=== PATIENT | female | born 1975 | race Asian ===

== ENCOUNTER 2021-06-17 07:19 | Day surgery (SDC) | payer OTHER ==
[~2021-06-17] VITALS: Ht 154.9 cm; Wt 50.1 kg
[~2021-06-17 07:19] MED LIST: Cipro500 MG PO; IBUP400 PO; Zofran Odt4 MG SL
--- NOTE | 2021-06-17 08:30 | NUR ---
0715 patient to day surgery. confirmed procedure and NPO status. lungs clear. pre op teaching done. patient has solid stone braclette on and unable to remove. explained risks to pt of leaving braclette on. glasses taken to pacu
[2021-06-17 14:01] LABS: Hematocrit 36.6 % (33.0-51.0); Hemoglobin 12.6 g/dL (11.5-16.0); Mean Corpuscular HGB Conc 34.4 g/dL (31.5-36.5); Mean Corpuscular Volume 90 fL (80-100); Mean Platelet Volume 10.9 fL (9.1-12.4); Platelet Count 146 K/mm3 (150-400); RDW Coefficient Variation 12.5 % (11.7-14.2); RDW Standard Deviation 41.3 fL (35.1-46.3); Red Blood Cell Count 4.07 M/mm3 (3.80-5.20); White Blood Cell Count 15.27 K/mm3 (4.00-11.30)
[2021-06-17 14:30] LABS: BAND PERCENT MAN 3 % (0-8); BASOPHILS PERCENT MAN 0 % (0-2); EOSINOPHILS PERCENT MAN 0 % (0-6); MONOCYTES ABSOLUTE MAN 0.15 K/mm3 (0.16-1.47); MONOCYTES PERCENT MAN 1 % (4-13); NEUTROPHILS ABSOLUTE MAN 15.11 K/mm3 (1.96-9.15); SEG NEUTROPHILS PERCENT MAN 96 % (41-73); TOTAL CELLS COUNTED 100
--- NOTE | 2021-06-17 18:18 | NUR ---
PATIENT CURRENTLY SITTING UP IN BED WITH NO SIGNS OR SYMPTOMS ACUTE DISTRESS NOTED. TOLERATING DIET WELL. TAKING PO WELL. NO COMPLAINTS OF NAUSEA. PATIENT WANTS TO STAY OVERNIGHT, DR SANTANA IS AWARE AND OK WITH THAT. PIRES CATH WAS REMOVED AT 1630 AND IS VOIDING WELL. PATIENT HAS AMBULATED IN THE [place] AND IS DOING SO IN ROOM OFTEN. CALL LIGHT AND WATER IN EASY REACH. ABLE TO MAKE NEEDS AND WANTS KNOWN. WILL MONITOR.
--- NOTE | 2021-06-18 05:15 | NUR ---
SHIFT SUMMARY: PT IN BED AAOX4. VS WNL WITH NO SIGNS OF DISTRESS NOTED. PT COMPLAINS OF PAIN AND CRAMPS IN ABDOMEN. MEDICATED PER EMAR FOR PAIN. SALINE LOCK IN PLACE PATENT SITE DRY AND INTACT. 2 INCISION ON ABDOMEN WITH STERI STRIPS C/D/I. ACTIVE BOWEL SOUNDS FLATUS PRESENT. PT UP TO BATHROOM ONE PERSON ASSIST VOIDED WELL CLEAR YELLOW URINE. WILL CONTINUE TO MONITOR AND MAINTAIN ALL PRECAUTIONS.
[2021-06-18] MEDS ORDERED: MOTRIN IB200 MG PO (08:32)
[2021-06-18] MEDS ORDERED: HYDR1TAB94 PO (08:32)
--- NOTE | 2021-06-18 12:38 | NUR ---
DISCHARGE: PACKET PRINTED AND PT EUDUCATED. GIVEN SCRIPT. PT VERBALIZED UNDERSTANDING.IV DC'D WNL. LEFT UNIT VIA WHEELCHAIR AT ABOUT 1130 WITH DISCHARGE VOLUNTEER.
--- NOTE | 2021-06-18 13:39 | NUR ---
06/18/21 1339 Lidia Sanchez VERIFICATIONS: EDIT CHART.
== END 2021-06-18 11:37 | disposition home or self-care (01) ==
LOC: ORSCMMR 07:19 → ORD 08:30 → ORSCMMR 08:30 → SURS 11:26 → ORSCMMR 06-18 11:37
PROVIDERS: Obstetrics & Gynecology
DX: N92.0 Excessive and frequent menstruation with regular cycle (principal); R10.2 Pelvic and perineal pain; D25.9 Leiomyoma of uterus, unspecified; N80.0 Endometriosis of uterus; N84.0 Polyp of corpus uteri; D26.1 Other benign neoplasm of corpus uteri
CPT/HCPCS: 36415; 85025; 88307; A9270; J0171; J0690; J1100; J1885; J2250; J2370; J2405; J2704; J3010; J7120

== ENCOUNTER → 2021-09-16 | Outpatient (CLI) | payer OTHER ==
[~2021-09-16] MED LIST changes: +HYDR1TAB94 PO; +MOTRIN IB200 MG PO
== END | disposition home or self-care (01) ==
LOC: LAB 17:44 → LAB SHORT 17:44
DX: R31.9 Hematuria, unspecified (principal)
CPT/HCPCS: 87086

== ENCOUNTER → 2022-06-24 | Outpatient (CLI) | payer OTHER ==
[2022-06-24 18:23] LABS: BASOPHILS ABSOLUTE AUTO 0.01 K/mm3 (0.00-0.23); BASOPHILS PERCENT AUTO 0 % (0-2); EOSINOPHILS ABSOLUTE AUTO 0.02 K/mm3 (0.00-0.68); EOSINOPHILS PERCENT AUTO 1 % (0-6); Hematocrit 43.3 % (33.0-51.0); Hemoglobin 14.2 g/dL (11.5-16.0); IMMATURE GRAN ABSOLUTE AUTO 0.01 K/mm3 (0.00-0.10); IMMATURE GRAN PERCENT AUTO 0 % (0-1); LYMPHOCYTES ABSOLUTE AUTO 0.86 K/mm3 (0.84-5.20); LYMPHOCYTES PERCENT AUTO 25 % (21-46); MONOCYTES ABSOLUTE AUTO 0.27 K/mm3 (0.16-1.47); MONOCYTES PERCENT AUTO 8 % (4-13); Mean Corpuscular HGB 30.9 pg (26.0-34.0); Mean Corpuscular HGB Conc 32.8 g/dL (31.5-36.5); Mean Corpuscular Volume 94 fL (80-100); Mean Platelet Volume 10.6 fL (9.1-12.4); NEUTROPHILS ABSOLUTE AUTO 2.33 K/mm3 (1.96-9.15); NEUTROPHILS PERCENT AUTO 67 % (41-73); Platelet Count 178 K/mm3 (150-400); RDW Coefficient Variation 12.2 % (11.7-14.2); RDW Standard Deviation 42.2 fL (35.1-46.3)
[2022-06-24 18:56] LABS: Alanine Aminotransfer (ALT/SGP 27 U/L (12-78); Albumin, Blood 3.5 g/dL (3.4-5.0); Albumin/Globulin Ratio 0.9 (0.8-1.8); Alk Phos 44 U/L (50-136); Anion Gap 3 mmol/L (6-16); Aspartate Aminotrans (AST/SGOT 17 U/L (12-37); Bilirubin, Total 0.3 mg/dL (0.1-1.0); Blood Urea Nitrogen 15 mg/dL (8-24); Bun/Creatinine Ratio 33.1 (12.0-20.0); CHOL/HDL RATIO 3.1; CO2, Blood 29 mmol/L (21-32); Calcium, Blood 8.8 mg/dL (8.5-10.1); Chloride, Blood 108 mmol/L (98-108); Cholesterol 205 mg/dL (50-200); Creatinine, Blood 0.45 mg/dL (0.40-1.00); Ferritin, Serum 143 ng/mL (8-252); Globulin, Blood 3.8 g/dL (2.2-4.0); Glomerular Filtration Rate 122 (60-); Glucose, Blood 78 mg/dL (70-99); HDL Cholesterol 66 mg/dL (>39); Iron Serum 94 ug/dL (50-170); Low Density Lipoprotein Chol 130 mg/dL (0-110); Percent Saturation 33.5 % (15.0-50.0); Potassium, Blood 3.9 mmol/L (3.5-5.5); Sodium, Blood 140 mmol/L (136-145); Total Iron Binding Capacity 281 ug/dL (250-450); Total Protein, Blood 7.3 g/dL (6.4-8.2); Triglycerides 47 mg/dL (30-160); Very Low Density Lipoprot Chol 9 mg/dL (6-32)
[2022-06-26 05:08] LABS: HEP B CORE AB, IGM Negative (Negative); HEP B CORE AB, TOT Positive (Negative)
[2022-06-27 12:09] LABS: HEP B SURFACE AB Non Reactive (.)
== END | disposition home or self-care (01) ==
LOC: LAB SHORT 15:28
PROVIDERS: Family Medicine
DX: B18.1 Chronic viral hepatitis B without delta-agent (principal); E78.5 Hyperlipidemia, unspecified; D64.9 Anemia, unspecified
CPT/HCPCS: 80053; 80061; 82607; 82728; 82746; 83540; 83550; 85025; 86704; 86705; 87350